=== PATIENT | female | born 1935 | race Caucasian/White ===

== ENCOUNTER → 2016-11-18 | Outpatient (CLI) | payer MEDICARE, BC ==
[2016-11-18 12:28] LABS: BASOPHILS % (AUTO) 0.9 % (0-2); EOSINOPHILS # (AUTO) 0.2 T/MM3 (0-0.5); EOSINOPHILS % (AUTO) 3.7 % (0-4); HCT - HEMATOCRIT 40.9 % (36-46); HGB - HEMOGLOBIN 13.4 GM/DL (12-16); LYMPHOCYTES # (AUTO) 1.4 T/MM3 (1-4.8); LYMPHOCYTES % (AUTO) 31.8 % (23-45); MEAN CORPUSCULAR HGB 35.9 UUG (26-34); MEAN CORPUSCULAR HGB CONC(MCHC 32.8 GM/DL (31-37); MEAN CORPUSCULAR VOLUME 109.7 UM3 (80-100); MEAN PLATELET VOLUME 9.3 UM3 (9.4-12.4); MONOCYTES # (AUTO) 0.6 T/MM3 (0-0.8); MONOCYTES % (AUTO) 13.8 % (0-9.0); NEUTROPHILS #(AUTO)-ABSOLUTE 2.1 T/MM3 (1.8-7.7); NEUTROPHILS % (AUTO) 49.8 % (33-66); RED BLOOD COUNT 3.73 M/MM3 (4.00-5.20); WBC - WHITE BLOOD COUNT 4.3 T/MM3 (4.5-11.0)
[2016-11-18 12:38] LABS: ALBUMIN 3.9 G/DL (3.5-5.0); ALBUMIN/GLOBULIN RATIO 1.1 RATIO (1.1-2.2); ALKALINE PHOSPHATASE 120 U/L (38-126); ALT (SGPT) 25 U/L (9-52); ANION GAP 13 MEQ/L (5-15); AST (SGOT) 30 U/L (14-36); BUN/CREATININE RATIO 19 RATIO (6-26); CALCIUM 9.7 MG/DL (8.4-10.2); CHLORIDE 101 MEQ/L (98-107); CO2 - CARBON DIOXIDE 30 MEQ/L (22-30); CREATININE 2.1 MG/DL (0.7-1.2); GLOMERULAR FILTRATION RATE 23; GLUCOSE 115 MG/DL (65-110); LDH 497 U/L (313-618); MAGNESIUM 2.2 MG/DL (1.6-2.3); POTASSIUM 4.6 MEQ/L (3.6-5); SODIUM 144 MEQ/L (134-144); TOTAL PROTEIN 7.3 G/DL (6.3-8.2)
== END ==
LOC: LAB 12:06
PROVIDERS: ATTEND Internal Medicine Hematology & Oncology
DX: C66.2 Malignant neoplasm of left ureter (principal); D09.0 Carcinoma in situ of bladder; C78.6 Secondary malignant neoplasm of retroperitoneum and peritoneum
CPT/HCPCS: 36415; 80053; 83615; 83735; 85025